=== PATIENT | male | born 1950 | race Caucasian/White ===

== ENCOUNTER 2019-04-11 16:12 | Emergency (ER) | payer MEDICARE, BC ==
[2019-04-11] MEDS ORDERED: Diphtheria,Pertussis(Acell),Tetanus Vaccine 0.5 ML Syringe IM ONE (16:18)
--- NOTE | 2019-04-11 16:29 | EDM.PDOC ---
ED HPI GENERAL MEDICAL PROBLEM - General Stated Complaint: NEED TETANUS SHOT Time Seen by Provider: 04/11/19 16:17 Source of Information: Reports: Patient History Limitations: Reports: No Limitations - History of Present Illness INITIAL COMMENTS - FREE TEXT/NARRATIVE: HISTORY AND PHYSICAL: History of present illness: Patient is a 68-year-old male who presents to the emergency room after tripping over some zeenat wire fence. He does have a laceration to the lab between his first and second digit on his left hand measuring approximately 1 cm in length. He also has a superficial 3 cm laceration to the left medial thigh. He states he is here today as he wants his tetanus updated. He denies hitting his head or having any loss of consciousness. Review of systems: As per history of present illness and below otherwise all systems reviewed and negative. Past medical history: As per history of present illness and as reviewed below otherwise noncontributory. Surgical history: As per history of present illness and as reviewed below otherwise noncontributory. Social history: See social history for further information Family history: As per history of present illness and as reviewed below otherwise noncontributory. Physical exam: General: Well-developed and well-nourished 60 age old male. Alert and oriented. Nontoxic appearing and in no acute distress. HEENT: Atraumatic, normocephalic, pupils equal and reactive bilaterally, negative for conjunctival pallor or scleral icterus, mucous membranes moist, trachea midline. No drooling or trismus noted. No meningeal signs. No hot potato voice noted. Lungs: Clear to auscultation, breath sounds equal bilaterally, chest nontender. Heart: S1S2, regular rate and rhythm without overt murmur Abdomen: Soft, nondistended, nontender. Negative for masses. Negative for costovertebral tenderness. Skin: 1 cm laceration to the web between the first and second digit on the left hand. Superficial laceration approximately 3 cm in length to the mid left medial thigh. Otherwise skin is intact, warm, dry. No lesions or rashes noted. Extremities: Atraumatic, moves all extremities per self without difficulty or deficits, negative for cords or calf pain. Neurovascular unremarkable. Neuro: Awake, alert, oriented. Cranial nerves II through XII unremarkable. Cerebellum unremarkable. Motor and sensory unremarkable throughout. Exam nonfocal. Notes: I did request that we suture the laceration to the hand, he declines. He is willing to allow us to irrigate and wash the site and applied some Dermabond. The thigh laceration is superficial and only requires wound care. Tetanus is updated. Supportive care measures were reviewed and discussed. Voices understanding and is agreeable to plan of care. Denies any further questions or concerns at this time. Diagnostics: None Therapeutics: Tdap, Wound care, Dermabond Prescription: None Impression: Laceration Plan: 1. Keep the area clean and dry. Continue to monitor for signs of infection. 2. Tylenol and/or ibuprofen as needed for pain management. 3. Please follow-up with your primary care provider in the next 1-2 days. Return to the ED as needed and as discussed. Definitive disposition and diagnosis as appropriate pending reevaluation and review of above. Onset: Today ED ROS GENERAL - Review of Systems Review Of Systems: ROS reveals no pertinent complaints other than HPI. ED EXAM, GENERAL - Physical Exam Exam: See Below (See dictation) ED GENERAL MEDICAL PROCEDURES - Laceration/Wound Repair Hand Lac/wound length in cm: 1 Appearance: Subcutaneous, Linear Distal NVT: Neuro & Vascular Intact, No Tendon Injury Skin Prep: Chlorhexidine (Hibiciens), Saline Closed with: Dermabond Drain Placement: No Sterile Dressing Applied: Provider Tetanus Status Addressed: Yes Complications: No Course - Vital Signs Last Recorded V/S: Last Vital Signs Temp 98.5 F 04/11/19 16:32 Pulse 78 04/11/19 16:32 Resp 20 04/11/19 16:32 BP Pulse Ox 96 04/11/19 16:32 - Orders/Labs/Meds Orders: Active Orders 24 hr Category Date Time Status Communication Order [RC] STAT Care 04/11/19 16:36 Active Vaccines to be Administered [RC] PER UNIT ROUTINE Care 04/11/19 16:19 Active Meds: Medications Discontinued Medications Generic Name Dose Route Start Last Admin Trade Name Freq PRN Reason Stop Dose Admin Diphtheria/Tetanus/Acell Pertussis 0.5 ml 04/11/19 16:18 04/11/19 16:45 Adacel IM 04/11/19 16:19 0.5 ml .ONCE ONE Administration Octyl Cyanoacrylate 1 applic 04/11/19 16:32 04/11/19 16:46 Dermabond Advance TOP 04/11/19 16:33 1 applic ONETIME ONE Administration Departure - Departure Time of Disposition: 16:36 Disposition: Home, Self-Care 01 Clinical Impression: Laceration - Discharge Information Instructions: Laceration Care, Adult, [id number] Referrals: PCP,None [Primary Care Provider] - Additional Instructions: The following information is given to patients seen in the emergency department who are being discharged to home. This information is to outline your options for follow-up care. We provide all patients seen in our emergency department with a follow-up referral. The need for follow-up, as well as the timing and circumstances, are variable depending upon the specifics of your emergency department visit. If you don't have a primary care physician on staff, we will provide you with a referral. We always advise you to contact your personal physician following an emergency department visit to inform them of the circumstance of the visit and for follow-up with them and/or the need for any referrals to a consulting specialist. The emergency department will also refer you to a specialist when appropriate. This referral assures that you have the opportunity for follow-up care with a specialist. All of these measure are taken in an effort to provide you with optimal care, which includes your follow-up. Under all circumstances we always encourage you to contact your private physician who remains a resource for coordinating your care. When calling for follow-up care, please make the office aware that this follow-up is from your recent emergency room visit. If for any reason you are refused follow-up, please contact the [facility] Emergency Department at and asked to speak to the emergency department charge nurse. [facility] [address] [place] [address] [id number] [address] [id number] 1. Keep the area clean and dry. Continue to monitor for signs of infection. 2. Tylenol and/or ibuprofen as needed for pain management. 3. Please follow-up with your primary care provider in the next 1-2 days. Return to the ED as needed and as discussed. - My Orders Last 24 Hours: My Active Orders 04/11/19 16:19 Vaccines to be Administered [RC] PER UNIT ROUTINE 04/11/19 16:36 Communication Order [RC] STAT - Assessment/Plan Last 24 Hours: My Active Orders 04/11/19 16:19 Vaccines to be Administered [RC] PER UNIT ROUTINE 04/11/19 16:36 Communication Order [RC] STAT
[2019-04-11] MEDS ORDERED: Octyl 2-Cyanoacrylate 1 Tube TOP ONE (16:32)
== END 2019-04-11 17:08 | disposition home or self-care (01) ==
LOC: MW.ED 16:12
DX: S61.412A Laceration without foreign body of left hand, initial encounter (principal); S71.112A Laceration without foreign body, left thigh, initial encounter; Z23 Encounter for immunization; W22.8XXA Striking against or struck by other objects, initial encounter
CPT/HCPCS: 12001; 90471; 90715; 99282; A9270